=== PATIENT | male | born 1995 | race Caucasian/White ===

== ENCOUNTER 2018-05-14 20:04 | Emergency (ER) | payer SELFPAY ==
[~2018-05-14] VITALS: Ht 170.2 cm; Wt 73.5 kg
[2018-05-14 20:28] VITALS: BP 104/62
--- NOTE | 2018-05-14 20:30 | NUR ---
TO LOBBY. A/W BED, AMBULATORY, VSS ERMD NOTED
--- NOTE | 2018-05-14 20:45 | NUR ---
PT WAS TAKEN TO BED 09.
--- NOTE | 2018-05-14 21:04 | NUR ---
22/M bib family with complaints of left flank pain x 1 week. Pt also c/o dysuria and states "when I pee it hurts all in my stomach." Abdomen soft, non tender. AOX4, skin warm and dry, normal for ethnicity. NAD ntoed. VSS.
--- NOTE | 2018-05-14 21:38 | NUR ---
PT TAKEN TO CT
--- NOTE | 2018-05-14 21:49 | NUR ---
PT RETURN FROM CT
--- NOTE | 2018-05-14 21:49 | NUR ---
Dr. Castle evaluating patient at bedside.
[2018-05-14] MEDS ORDERED: KETOROLAC 30 MG/ML VIAL IVP ONE (21:55)
[2018-05-14] MEDS ORDERED: NACL 0.9% 500 ML IV ONE (21:55)
[2018-05-14] MEDS ORDERED: ONDANSETRON 4 MG/2 ML VIAL IVP ONE (21:55)
[2018-05-14 22:32] LABS: APPEARANCE,URINE CLEAR (CLEAR); BILIRUBIN,URINE NEGATIVE (NEGATIVE); BLOOD, URINE NEGATIVE (NEGATIVE); COLOR,URINE YELLOW (YELLOW); LEUKOCYTE ESTERASE ,URINE NEGATIVE (NEGATIVE); NITRITE, URINE NEGATIVE (NEGATIVE); UGLUCOSE NEGATIVE (NEGATIVE)
[2018-05-14 23:09] VITALS: BP 131/70
--- NOTE | 2018-05-14 23:10 | NUR ---
Patient discharged with v/s stable. Written and verbal after care instructions given and explained. Patient alert, oriented and verbalized understanding of instructions. Ambulatory with steady gait. All questions addressed prior to discharge. ID band removed. Patient advised to follow up with PMD. Rx of MOTRIN 800MG, ZOFRAN 8MG, PROTONIX 40MG given. Patient educated on indication of medication including possible reaction and side effects. Opportunity to ask questions provided and answered.
[2018-05-17 06:16] LABS: CHLAMYDIA TRACHOMATIS AMP DNA Negative (Negative)
== END 2018-05-14 23:10 | disposition home or self-care (01) ==
LOC: MED 20:04
DX: S20.219A Contusion of unspecified front wall of thorax, initial encounter (principal); R10.9 Unspecified abdominal pain; R20.2 Paresthesia of skin; R11.0 Nausea; Z88.0 Allergy status to penicillin; X58.XXXA Exposure to other specified factors, initial encounter; Y93.89 Activity, other specified; Y92.89 Other specified places as the place of occurrence of the external cause; Y99.8 Other external cause status
CPT/HCPCS: 36415; 74176; 81003; 96374; 96375; 99285; J1885; J2405; 87491; J7030